=== PATIENT | female | born 1955 | race Caucasian/White ===

== ENCOUNTER 2017-06-24 14:39 | Inpatient (IN) | payer MEDICARE, MEDICAID ==
[~2017-06-24] VITALS: Ht 167.6 cm; Wt 62.2 kg
--- NOTE | 2017-06-24 14:39 | NUR ---
PT WAS [facility]RA FROM [facility] FOR EPISODE OF HYPOXIA IN THE SNF AND VOMITTING X 2 EPISODE. PT WAS GIVEN ZOFRAN AND IV FLUIDS IN THE SNF. BS-106. PT HAS A HISTORY OF LUNG CA. POR HISTORIAN DUE TO PT'S MEDICAL CONDITION. PT WAS PLACED ON CONT CARDIAC AND POX MONITORING, SPO2 88% RA. PLACED ON O2 VIA NC. ALL NEEDS ARE ATTENDED, KEPT COMFORTABLE. PENDING ER MD SANDS
--- NOTE | 2017-06-24 15:20 | NUR ---
NEW IV STARTED ON LAC, 20G. BLOOD DRAWN AND SENT TO LAB.
[2017-06-24 15:30] LABS: BASOPHILS # (AUTO) 0.8 /CMM (0.0-0.2); BASOPHILS % (AUTO) 4.6 % (0.0-2.0); EOSINOPHILS % (AUTO) 0.1 % (0.0-6.0); HEMATOCRIT 39 % (33-45); HEMOGLOBIN 12.4 g/dL (11.5-14.8); LYMPHOCYTES # (AUTO) 1.2 /CMM (0.8-4.8); MEAN CORPUSCULAR HGB CONC 32 g/dl (31.0-36.0); MEAN CORPUSCULAR VOLUME 74 fL (82-100); MONOCYTES # (AUTO) 0.5 /CMM (0.1-1.30); NEUTROPHILS % (AUTO) 85.3 % (43.0-81.0); PLATELET COUNT (AUTO) 446 /CMM (150-450); RDW COEFFICIENT OF VARIATION 15.9 (11.5-15.0); WHITE BLOOD COUNT (AUTO) 16.5 K/uL (4.3-11.0)
[2017-06-24] MEDS ORDERED: IV NS 0.9% 1,000 ML BAG IV ONE (15:30)
[2017-06-24] MEDS ORDERED: PIPERACILLIN /TAZOBACTAM 3.375 G in IV D5W 50 ML IV ONE (15:30)
[2017-06-24] MEDS ORDERED: IOHEXOL-350 100 ML VIAL IV ONE (15:37)
[2017-06-24] MEDS ORDERED: IV NS 0.9% 500 ML IV ONE (15:38)
--- NOTE | 2017-06-24 15:38 | NUR ---
PATIENT TAKEN TO CT VIA STRETCHER.
[2017-06-24 15:40] LABS: CALCIUM, SERUM 11.1 mg/dL (8.5-10.1); CARBON DIOXIDE 25 mmol/L (21-32); CHLORIDE 105 mmol/L (98-107); CREATININE 1.3 mg/dL (0.6-1.3); GLUCOSE 83 mg/dL (74-106); POTASSIUM 4.6 mmol/L (3.5-5.1); SODIUM SERUM 143 mmol/L (136-145); UREA NITROGEN, BLOOD 43 mg/dL (7-18)
[2017-06-24] MEDS ORDERED: CT SWABBABLE VALVE TRANS SET 1 EA INFUS.SET MC ONE (15:40)
[2017-06-24 15:43] LABS: INR 1.21 (0.85-1.15)
[2017-06-24 15:45] LABS: ALANINE AMINOTRANSFERASE 9 U/L (12-78); ALBUMIN 1.9 g/dL (3.4-5.0); ALKALINE PHOSPHATASE 82 U/L (46-116); ASPARTATE AMINOTRANSFERASE 18 U/L (15-37); BILIRUBIN,DIRECT 0.1 mg/dL (0.0-0.2); BILIRUBIN,TOTAL 0.4 mg/dL (0.2-1.0); TOTAL PROTEIN, SERUM 6.9 g/dL (6.4-8.2)
[2017-06-24 15:48] LABS: TROPONIN I < 0.017 ng/mL (0.00-0.056)
--- NOTE | 2017-06-24 16:03 | NUR ---
PATIENT RETURNED FROM CT IN STABLE CONDITION.
--- NOTE | 2017-06-24 16:07 | NUR ---
US TECH AT BEDSIDE.
[2017-06-24] MEDS ORDERED: HYDROMORPHONE INJ 2 MG/ML DISP.SYRIN ONE (16:27)
[2017-06-24] MEDS ORDERED: HYDROMORPHONE 1 MG/1 ML DISP.SYRIN IV ONE (16:30)
--- NOTE | 2017-06-24 16:54 | NUR ---
CALLED NURSING WIC SITE COORDINATOR AND REQUESTED A HERB BED FOR THIS PT.
--- NOTE | 2017-06-24 17:00 | NUR ---
16 FR vegas catheter inserted per sterile protocal. Immediate output 35 ML of urine, color yellow, cloudy.
--- NOTE | 2017-06-24 17:03 | NUR ---
CALLED [facility] FOR A PANEL CALL AND LAUREN MIKE WAS PAGED
[2017-06-24 17:06] LABS: APPEARANCE,URINE Cloudy (CLEAR); BILIRUBIN,URINE SMALL (NEGATIVE); BLOOD, URINE Large Ery/uL (NEGATIVE); COLOR,URINE Yellow (YELLOW); KETONES,URINE 15 (NEGATIVE); LEUKOCYTE ESTERASE ,URINE Moderate (NEGATIVE); NITRITE, URINE Negative (NEGATIVE); PH,URINE 5.5 (5.0-8.0); PROTEIN,URINE 30 mg/dl (NEGATIVE); UGLUCOSE Negative (NEGATIVE); UROBILINOGEN,URINE 0.2 EU/dL (0.2)
--- NOTE | 2017-06-24 17:08 | NUR ---
PT IS ASSIGNED TO [facility] RM#: [id number], PT IS DIAGNOSED WITH METASTATIC LUNG CANCER, AND LAUREN MIKE IS THE ACCEPTING DNP.
--- NOTE | 2017-06-24 17:20 | NUR ---
PATIENT TAKEN TO CT VIA STRETCHER.
--- NOTE | 2017-06-24 17:23 | NUR ---
REPORT GIVEN TO ROD MINAYA FOR JOHN UPON ADMISSION.
--- NOTE | 2017-06-24 17:32 | NUR ---
PATIENT RETURNED FROM CT IN STABLE CONDITION.
[2017-06-24 18:00] LABS: BACTERIA,URINE 2+ /HPF (None Seen); RBC,URINE 81-100 /HPF (0-2); SQUAMOUS EPITHELIAL CELL,UR Few /HPF (None Seen); WBC,URINE 21-50 /HPF (0-3)
[2017-06-24] MEDS ORDERED: TRAZ-182 PO (18:12)
[2017-06-24] MEDS ORDERED: ACET-868 PO (18:12)
[2017-06-24] MEDS ORDERED: POLY17PO4 PO (18:12)
[2017-06-24] MEDS ORDERED: IPRA3AMP23 IH ×2 (18:12)
[2017-06-24] MEDS ORDERED: OXYC10TA49 PO (18:12)
[2017-06-24] MEDS ORDERED: ZOLP5TAB8 PO (18:12)
[2017-06-24] MEDS ORDERED: PANT40TA4 PO (18:12)
[2017-06-24] MEDS ORDERED: ESCI10TA PO (18:12)
[2017-06-24] MEDS ORDERED: LUBI24CA5 PO (18:12)
[2017-06-24] MEDS ORDERED: METH10TA2 PO (18:12)
[2017-06-24] MEDS ORDERED: BISA10SU8 RC (18:12)
[2017-06-24] MEDS ORDERED: MAG-5 PO (18:12)
[2017-06-24] MEDS ORDERED: FAMO20TA8 PO (18:12)
[2017-06-24] MEDS ORDERED: LORA1TAB PO (18:12)
[2017-06-24] MEDS ORDERED: CEFT1VIA15 IV (18:12)
[2017-06-24] MEDS ORDERED: ONDA4TAB5 PO (18:12)
[2017-06-24] MEDS ORDERED: MAGN400O6 PO (18:12)
--- NOTE | 2017-06-24 18:43 | NUR ---
PT TRANSFERRED TO FLOOR ASSISTED BY FELIX MINAYA AND KETTY GUSMAN, VIA ACLS PROTOCOL
[2017-06-24 18:50] VITALS: BP 136/75
--- NOTE | 2017-06-24 18:50 | NUR ---
RN NOTES RECEIVED PT IN ROOM 107 FROM ER, PT IS A/Ox1, ON 3 L O2 N/C , O2 SAT 99%, ON TELE SR HR IN 70'S , FENG DRAINING TO GRAVITY , L WRIST IV SITE G 24 CDI, BP =136/75 T=97.9, R =27 WILL ENDOSE TO [facility] SHIFT NURSE FOR JOHN
[2017-06-24] MEDS ORDERED: ZOLPIDEM TARTRATE 5 MG TABLET PO PRN (19:30)
[2017-06-24] MEDS ORDERED: MAG HYDROX/AL HYDROX/SIMETH 30 ML UDC PO PRN (19:30)
[2017-06-24] MEDS ORDERED: HYDROCODONE/APAP 5/325MG 1 EACH TABLET PO PRN (19:30)
[2017-06-24] MEDS ORDERED: ACETAMINOPHEN 650 MG/SUPP.RECT RC PRN (19:30)
[2017-06-24] MEDS ORDERED: ONDANSETRON HCL/PF 4 MG/2 ML VIAL IVP PRN (19:30)
[2017-06-24] MEDS ORDERED: MAGNESIUM HYDROXIDE 30 ML UDC PO PRN (19:30)
[2017-06-24] MEDS ORDERED: FENTANYL PF 100MCG/2ML AMPUL IV PRN (19:30)
[2017-06-24] MEDS ORDERED: ACETAMINOPHEN 325 MG TABLET PO PRN (19:30)
[2017-06-24] MEDS ORDERED: Z GUARD REMEDY 2 OZ OINT TP PRN (19:30)
[2017-06-24] MEDS ORDERED: FEE PK DOSING 1 MIN EA MC ONE (19:40)
[2017-06-24 20:00] VITALS: BP 144/83
[2017-06-24] MEDS ORDERED: VANCOMYCIN 1 GM in IV D5W 250 ML IV SCH (20:00)
[2017-06-24] MEDS: PANTOPRAZOLE 40 MG VIAL IV SCH (20:25)
[2017-06-24] MEDS: LEVOFLOXACIN 750 MG /D5W 150ML 750 MG in PREMIX 1 EA IV SCH (20:27)
[2017-06-24] MEDS: RIVAROXABAN 10 MG TABLET PO SCH (20:27)
[2017-06-24] MEDS: IV D5/ 0.9% NACL 1,000 ML IV PRN (20:28)
[2017-06-25] VITALS: BP 152/84
[2017-06-25 04:00] VITALS: BP 131/80
[2017-06-25] MEDS: PIPERACILLIN /TAZOBACTAM 3.375 G in IV D5W 50 ML IV SCH ×5 (05:53→17:20)
[2017-06-25 06:26] LABS: BASOPHILS % (AUTO) 0.2 % (0.0-2.0); EOSINOPHILS % (AUTO) 0.1 % (0.0-6.0); HEMATOCRIT 33 % (33-45); HEMOGLOBIN 10.3 g/dL (11.5-14.8); LYMPHOCYTES # (AUTO) 4.6 /CMM (0.8-4.8); LYMPHOCYTES % (AUTO) 21.8 % (20.0-44.0); MEAN CORPUSCULAR HGB CONC 31 g/dl (31.0-36.0); MEAN CORPUSCULAR VOLUME 75 fL (82-100); MONOCYTES # (AUTO) 0.7 /CMM (0.1-1.30); MONOCYTES % (AUTO) 3.4 % (2.0-12.0); NEUTROPHILS # (AUTO) 15.8 /CMM (1.8-8.9); NEUTROPHILS % (AUTO) 74.5 % (43.0-81.0); PLATELET COUNT (AUTO) 419 /CMM (150-450); RDW COEFFICIENT OF VARIATION 17.6 (11.5-15.0); RED BLOOD CELL COUNT(AUTO) 4.44 MIL/uL (4.0-5.2); WHITE BLOOD COUNT (AUTO) 21.3 K/uL (4.3-11.0)
--- NOTE | 2017-06-25 06:40 | NUR ---
HERB RN NOTES, PATIENT SLEEPING IN BED, BREATHING EVEN AND UNLABORED, NO SOB/ACUTE DISTRESS, NO SIGNIFICANT JOHN THROUGHOUT THE NIGHT, IV INTACT AND PATENT, IVF INFUSING WELL AND PATIENT TOLERATED WELL, F/C DRAINING YELLOW URINE BY GRAVITY, PATENCY INTACT, WILL ENDORSE CONTINUITY OF CARE TO ONCOMING SHIFT.
[2017-06-25 06:46] LABS: ALBUMIN 1.5 g/dL (3.4-5.0); BILIRUBIN,TOTAL 0.8 mg/dL (0.2-1.0); CREATININE 1.1 mg/dL (0.6-1.3); MAGNESIUM 1.8 mg/dL (1.8-2.4); PHOSPHORUS 3.9 mg/dL (2.5-4.9); TOTAL PROTEIN, SERUM 5.9 g/dL (6.4-8.2)
[2017-06-25 06:51] LABS: THYROID STIMULATING HORMONE 3.481 uIU/mL (0.358-3.74)
--- NOTE | 2017-06-25 07:15 | NUR ---
TD RN OPENING RECEIVED PATIENT A/OX2-3 SLIGHT CONFUSION NOTED. PATIENT TELE NSR. FC IN PLACE AND DRAINING TO GRAVITY. IVF ORDERED AND IV SITE CLEAN DRY AND INTACT. PATIENT IS ANXIOUS AND ALL NEEDS ASSESSED AND MET. SAFETY PRECAUTIONS IN PLACE. PATIENT REFUSING SKIN CHECK AT THIS TIME. BLE POPLITEAL PULSES PRESENT. BLE WARM TO TOUCH OFFLOADED ON PILLOW. WILL ROUND PRN.
[2017-06-25 08:00] VITALS: BP 130/81
--- NOTE | 2017-06-25 08:00 | NUR ---
HERB RN NOTES PATIENT REFUSING TURNING/OFFLOADING, SKIN CARE, SKIN CHECK, OR BED BATH. EDUCATED AND STATED UNDERSTANDING.
[2017-06-25] MEDS: VANCOMYCIN 0.75 GM in IV D5W 250 ML IV SCH ×2 (08:38→20:14)
[2017-06-25 09:41] LABS: BAND % (MANUAL) 4 % (0.0-5.0); LYMPHOCYTES % (MANUAL) 17 % (16-48); MONOCYTES % (MANUAL) 10 % (0-11.0); NEUTROPHILS % (MANUAL) 69 (42-76)
--- NOTE | 2017-06-25 10:00 | NUR ---
HERB RN NOTES PATIENT REFUSING TURNING/OFFLOADING, SKIN CARE, SKIN CHECK, OR BED BATH. EDUCATED AND STATED UNDERSTANDING.
[2017-06-25] MEDS: IV D5/ 0.9% NACL 1,000 ML IV PRN (11:13)
--- NOTE | 2017-06-25 13:00 | NUR ---
MS RN NOTES TICKET MARKER ARPAN YBARRA AT BEDSIDE. PATIENT REFUSING BED BATH. ALLOWED MYSELF AND ARMY MANAGER TO CHANGE LINENS AND APPLY MEPILEX TO BILAT HIPS DUE TO VERY SENSITIVE SKIN AND MULTIPLE CLOSED BLISTERS ON HIPS. PATIENT IS NOW ALLOWING US TO OFFLOAD WITH PILLOWS HER SACRUM, APPLY MEPILEX TO SACRUM AND OFFLOAD HEELS THEY ARE BECOMING RED. PATIENT EDUCATED ON SKIN CARE AND HYGIENE. STATES UNDERSTANDING BUT STILL REFUSING BED BATH.
--- NOTE | 2017-06-25 13:42 | NUR ---
MS RN NOTES DR PAYNE AT BEDSIDE.
--- NOTE | 2017-06-25 15:00 | NUR ---
MS RN NOTES DR GARCIA AT BEDSIDE.
--- NOTE | 2017-06-25 15:30 | NUR ---
MS RN NOTES SPEECH THERAPIST AT BEDSIDE FOR SWALLOW EVAL
--- NOTE | 2017-06-25 15:48 | NUR ---
MS RN NOTES NOTIFIED DR MIKE PATIENT REFUSING SWALLOW EVAL, HALLUCINATING AND PARANOID. PATIENT NOT ALLOWING ANY HYGIENE, SKIN CARE, WOUND CARE, TURNING OFFLOADING. PER MD OKAY TO ORDER PSYCH CONSULT; TODAY DR RIVERA AUTOMATIC BOW MAKER MACHINE TENDER. FAXED FACE SHEET TO [facility] PATIENT SAFETY PRECAUTIONS IN PLACE. CALL LIGHT IN REACH. MD AWARE OF MED RECON.
[2017-06-25 16:00] VITALS: BP 146/84
[2017-06-25] MEDS ORDERED: MAG HYDROX/AL HYDROX/SIMETH 30 ML UDC PO PRN (16:00)
[2017-06-25] MEDS ORDERED: LORAZEPAM 1 MG TABLET PO PRN (16:00)
[2017-06-25] MEDS ORDERED: BISACODYL SUPP (10 MG) 10 MG/SUPP.RECT SUPP.RECT RC PRN (16:00)
[2017-06-25] MEDS ORDERED: MAGNESIUM HYDROXIDE 30 ML UDC PO PRN (16:00)
--- NOTE | 2017-06-25 16:04 | NUR ---
MS RN NOTES PATIENT REFUSING TURNING/OFFLOADING. PASSIVE WITH RESPONDING. PATIENT FORGETFUL TO WHERE SHE IS AT TIMES AND HALLUCINATING STATING SHE LEFT TO GO SOMEWHERE AND ALREADY CAME BACK WITH FOOD.
--- NOTE | 2017-06-25 16:28 | NUR ---
MS RN NOTES CALLED [facility] AND THEY DO NOT HAVE INFORMATION ON PATIENT [facility] BUT STATES IT IS FOR CHRONIC PAIN POSSIBLY FROM MET LUNG CA. NOTIFIED PHARMACY.
[2017-06-25] MEDS ORDERED: ALBUTEROL FS 2.5 MG/0.5 ML VIAL.NEB NEB PRN (16:30)
[2017-06-25] MEDS: oxyCODONE IR immediate release 5 MG PO SCH ×2 (16:30→21:51)
[2017-06-25] MEDS ORDERED: IPRATROPIUM NEB FS 0.5 MG/2.5 ML AMPUL.NEB NEB PRN (16:30)
[2017-06-25] MEDS: POLYETHYLENE GLYCOL 3350 17 GM POWD.PACK PO SCH (17:00)
[2017-06-25] MEDS: RIVAROXABAN 10 MG TABLET PO SCH (17:00)
--- NOTE | 2017-06-25 17:21 | NUR ---
MS RN NOTES MULTIPLE ATTEMPTS TO HAVE PATIENT TAKE PO MEDICATIONS. STATES I AM LYING THAT SHE IS AT [facility] AND IGNORING WHEN SPOKE TO. PATIENT IS REFUSING. EDUCATED BUT PASSIVE
--- NOTE | 2017-06-25 17:30 | NUR ---
MS RN NOTES NOTIFIED DR MIKE PATIENT REFUSED XARELTO. NO NEW ORDERS.
[2017-06-25] MEDS ORDERED: METHADONE HCL 10 MG TABLET PO SCH (18:00)
--- NOTE | 2017-06-25 18:34 | NUR ---
MS RN CLOSING PATIENT CONTINUES TO REFUSE TURNING, PO MEDICATIONS AND TO RESPOND TO STAFF MOST TIMES. PATIENT REFUSES TO ACCEPT SHE IS IN THE HOSPITAL AND DOES NOT TRUST ANYONE TO GIVE HER ANYTHING. APPEARS STABLE. ROOM AIR STABLE. NO SOB, DIFFICULTY BREATHING. SAFETY PRECAUTIONS IN PLACE. WILL ENDORSE CARE TO RN FOR JOHN
--- NOTE | 2017-06-25 18:47 | NUR ---
MS RN NOTES CALLED [facility]. PATIENT PRIMARY LEGAL INSTRUCTOR IS DR ALEXANDER; MESSAGE TO OFFICE TO NOTIFY OF ADMISSION. AND PATIENT PRIMARY MD IS DR CRONIN [phone]
--- NOTE | 2017-06-25 19:20 | NUR ---
MS RN NOTES, PATIENT SLEEPING IN BED, BREATHING EVEN AND UNLABORED, NO SOB/ACUTE DISTRESS, DENIES DISCOMFORT OR PAIN AT TIS TIME, IV INTACT AND PATENT, IVF INFUSING WELL AND PATIENT TOLERATED WELL, F/C DRAINING YELLOW URINE BY GRAVITY, PATENCY INTACT, BED LOCKED AND IN LOWEST POSITION, CALL LIGHT W/I REACH, WILL CONTINUE TO MONITOR CLOSELY.
[2017-06-25 20:00] VITALS: BP 139/88
[2017-06-25] MEDS: PANTOPRAZOLE 40 MG VIAL IV SCH (20:12)
[2017-06-25] MEDS: TRAZODONE 50 MG TABLET PO SCH (21:51)
[2017-06-26] MEDS: PIPERACILLIN /TAZOBACTAM 3.375 G in IV D5W 50 ML IV SCH ×5 (01:13→23:26)
[2017-06-26 04:00] VITALS: BP 152/72
[2017-06-26] MEDS: oxyCODONE IR immediate release 5 MG PO SCH ×3 (04:30→11:10)
--- NOTE | 2017-06-26 06:54 | NUR ---
MS RN NOTES, PATIENT AWAKE IN BED, BREATHING EVEN AND UNLABORED, NO SOB/ACUTE DISTRESS, DENIES DISCOMFORT OR PAIN AT TIS TIME, IV INTACT AND PATENT, IVF INFUSING WELL AND PATIENT TOLERATED WELL, F/C DRAINING YELLOW URINE BY GRAVITY, PATENCY INTACT, NO SIGNIFICANT CHANGE OF CONDITION DURING SHIFT, BED LOCKED AND IN LOWEST POSITION, CALL LIGHT W/I REACH, WILL ENDORSE CONTINUITY OF CARE TO ONCOMING SHIFT.
[2017-06-26 07:51] LABS: CALCIUM, SERUM 10.1 mg/dL (8.5-10.1); POTASSIUM 3.1 mmol/L (3.5-5.1)
--- NOTE | 2017-06-26 07:51 | NUR ---
MS RN NOTES RECEIVED REPORT. PATIENT AWAKE A.OX2 CONFUSED. PATIENT IV SITE LEAKING. REMOVED WITH PRESSURE AND DRESSING APPLIED NO BLEEDING NOTED. CATH TIP INTACT AND PATIENT STATING SHE WILL ALLOW A NEW INSERTION. FC IN PLACE DRAINING WELL CLEAR YELLOW URINE. PATIENT NEEDS IN REACH, SAFETY PRECAUTIONS IN PLACE. MONITORING.
[2017-06-26 08:00] VITALS: BP_SYST 113; BP_SYST 169; BP_DIAS 64; BP_DIAS 69
[2017-06-26] MEDS: VANCOMYCIN 0.75 GM in IV D5W 250 ML IV SCH ×2 (08:00→15:16)
[2017-06-26] MEDS: POLYETHYLENE GLYCOL 3350 17 GM POWD.PACK PO SCH ×2 (08:30→18:04)
[2017-06-26] MEDS: ESCITALOPRAM OXALATE (10 MG) 10 MG TABLET PO SCH (08:30)
--- NOTE | 2017-06-26 08:39 | NUR ---
MS RN NOTES PATIENT IS REFUSING IV ACCESS. PO MEDICATIONS AND ANY ORAL SWALLOWING OF WATER/ICE CHIPS. VANCO HELD TROUGH ELEVATED 21. SAFETY PRECAUTIONS IN PLACE. WILL MONITOR
[2017-06-26] MEDS ORDERED: Medication Not On Formulary EA (Lubiprostone (Amitiza) 24 MCG) PO SCH (09:00)
--- NOTE | 2017-06-26 09:43 | NUR ---
MS RN NOTES MESSAGE TO DR NANCY MORALES NO UPDATE PATIENT REFUSING IV ACCESS, PO MEDICATIONS AND SKIN CARE.
--- NOTE | 2017-06-26 09:53 | NUR ---
MS MINAYA NOTES PATIENT REFUSING CHANGING OF MEPILEX AT THIS TIME. EDUCATED. PASSIVE AND NON RESPONSIVE TO QUESTIONS. SAFETY PRECAUTIONS IN PLACE Addendum: 06/26/17 at 1007 by SUMANTH LLAMAS RN Amended: Links added.
--- NOTE | 2017-06-26 10:08 | NUR ---
MS MINAYA NOTES PATIENT REFUSING SKIN CARE/WOUND CARE. PATIENT NOT ALLOWING VISUALIZATION ON AREA. MEPILEX ON AREA PER MD ORDER.EDUCATED BUT REFUSING EDUCATION AND NOT REQPONDING TO QUESTIONS ASKED Addendum: 06/26/17 at 1008 by SUMANTH LLAMAS RN Amended: Links added.
--- NOTE | 2017-06-26 10:08 | NUR ---
MS RN NOTES CARE ENDORSED TO MARIMAR ORTEGA FOR JOHN.
--- NOTE | 2017-06-26 10:25 | NUR ---
WOUND CARE CONSULT WOUND CARE RECEIVED CONSULT FOR DECUBITUS ULCERS. WOUND CARE WILL DEFER CONSULT AND ALL TREATMENT PLANS TO SURGICAL TEAM WHO ARE CURRENTLY FOLLOWING. PATIENT WITH ALIYA AT 14, ALL PRESSURE ULCER PREVENTION MEASURES NOTED TO BE IN PLACE AT THIS TIME.
--- NOTE | 2017-06-26 10:30 | NUR ---
RN NOTE RECEIVED PT FROM SUMANTH MINAYA FOR JOHN, PT STABLE, PT REFUSES IV ACCESS. NANCY MOARLES NOTIFIED
[2017-06-26] MEDS ORDERED: POTASSIUM CHLORIDE 20 MEQ TAB.PRT.SR PO SCH (11:00)
[2017-06-26] MEDS ORDERED: POTASSIUM CHLORIDE 20 MEQ POWDER PACKET PO ONE (12:00)
--- NOTE | 2017-06-26 14:22 | NUR ---
RN NOTE ZOSYN WAS GIVEN LATE BECAUSE PT HAD NO IV ACCESS BEFORE AND WAS REFUSING PLACEMENT OF NEW IV CATHETER. LATER ON SHE DID CONSENT FOR IV CATHETER. WILL MONITOR PT. CALL LIGHT WITHIN REACH.
[2017-06-26] MEDS ORDERED: FENTANYL TD PATCH (12 MCG/HR) 12 MCG/HR PATCH.TD72 TD SCH ×2 (14:30→15:24)
[2017-06-26] MEDS: ALBUTEROL FS 2.5 MG/0.5 ML VIAL.NEB NEB SCH ×3 (15:30→19:34)
[2017-06-26 16:00] VITALS: BP 149/85
[2017-06-26] MEDS: IPRATROPIUM NEB FS 0.5 MG/2.5 ML AMPUL.NEB NEB SCH ×2 (16:30→19:35)
[2017-06-26] MEDS: RIVAROXABAN 10 MG TABLET PO SCH (18:04)
[2017-06-26] MEDS: Potassium Chloride 20 MEQ in IV D5/0.45 NACL 1,000 ML IV PRN (18:05)
[2017-06-26] MEDS: METHADONE HCL 10 MG TABLET PO SCH (18:05)
--- NOTE | 2017-06-26 19:30 | NUR ---
RN OPENING NOTES REPORT RECEIVED FROM SHANNON MINAYA. PATIENT A/A/O X2, ABLE TO MAKE SOME NEEDS KNOWN. BREATHING EVEN & UNLABORED, TOLERATING O2 @ 2LPM VIA NC. DENIES SOB OR DIFFICULTY BREATHING. PULSES PRESENT & DRESSINGS REINFORCED ON WOUNDS. RIGHT WRIST IV #24 & RIGHT UPPER ARM MIDLINE INTACT & PATENT W/ DRESSING CDI. IVF D5 1/2 NS W/ KCL 20 MEQ INFUSING WELL @ 100 ML/HR IN RIGHT UA MIDLINE. FENG CATH DRAINING YELLOW URINE. DENIES ANY PAIN OR DISCOMFORT @ THIS TIME. SAFETY MEASURES IN PLACE W/ CALL LIGHT WITHIN REACH. INSTRUCTED TO CALL FOR ASSISTANCE. WILL CONTINUE TO MONITOR.
[2017-06-26 20:00] VITALS: BP 142/68
[2017-06-26] MEDS: LEVOFLOXACIN 750 MG /D5W 150ML 750 MG in PREMIX 1 EA IV SCH (20:47)
[2017-06-26] MEDS: PANTOPRAZOLE 40 MG VIAL IV SCH (20:47)
[2017-06-26] MEDS: TRAZODONE 50 MG TABLET PO SCH (21:34)
[2017-06-27] MEDS: oxyCODONE IR immediate release 5 MG PO PRN ×3 (02:33→23:07)
[2017-06-27 04:00] VITALS: BP 120/79
[2017-06-27 04:30] VITALS: BP 120/79
[2017-06-27] MEDS: PIPERACILLIN /TAZOBACTAM 3.375 G in IV D5W 50 ML IV SCH ×3 (05:05→18:30)
[2017-06-27 06:42] LABS: BASOPHILS % (AUTO) 0.3 % (0.0-2.0); EOSINOPHILS % (AUTO) 0.6 % (0.0-6.0); HEMATOCRIT 29 % (33-45); HEMOGLOBIN 9.1 g/dL (11.5-14.8); LYMPHOCYTES # (AUTO) 2.1 /CMM (0.8-4.8); LYMPHOCYTES % (AUTO) 20.8 % (20.0-44.0); MEAN CORPUSCULAR HGB CONC 32 g/dl (31.0-36.0); MEAN CORPUSCULAR VOLUME 75 fL (82-100); MONOCYTES # (AUTO) 0.6 /CMM (0.1-1.30); MONOCYTES % (AUTO) 6.4 % (2.0-12.0); NEUTROPHILS # (AUTO) 7.1 /CMM (1.8-8.9); NEUTROPHILS % (AUTO) 71.9 % (43.0-81.0); PLATELET COUNT (AUTO) 312 /CMM (150-450); RDW COEFFICIENT OF VARIATION 17.5 (11.5-15.0); RED BLOOD CELL COUNT(AUTO) 3.84 MIL/uL (4.0-5.2); WHITE BLOOD COUNT (AUTO) 9.9 K/uL (4.3-11.0)
[2017-06-27 06:49] LABS: CALCIUM, SERUM 9.5 mg/dL (8.5-10.1); CREATININE 0.7 mg/dL (0.6-1.3); MAGNESIUM 1.4 mg/dL (1.8-2.4); PHOSPHORUS 2.4 mg/dL (2.5-4.9); POTASSIUM 3.1 mmol/L (3.5-5.1)
[2017-06-27] MEDS: ALBUTEROL FS 2.5 MG/0.5 ML VIAL.NEB NEB SCH ×3 (07:33→23:55)
[2017-06-27] MEDS: IPRATROPIUM NEB FS 0.5 MG/2.5 ML AMPUL.NEB NEB SCH ×3 (07:33→23:55)
[2017-06-27 08:00] VITALS: BP 121/79
[2017-06-27] MEDS: VANCOMYCIN 0.75 GM in IV D5W 250 ML IV SCH (08:00)
--- NOTE | 2017-06-27 09:00 | NUR ---
RN NOTES RECEIVED REPORT FROM JHON FOR CONTINUITY OF CARE. PT A&0X2 LETHARGIC , 2L NC SATING WELL NO SOB OR DISTRESS NOTED. FENG DRAINING TO GRAVITY. KB MIDLINE INTACT WITH IVF AT 100ML/HR. BED LOCKED AND IN LOWEST POSITION, CALL LIGHT WITHIN REACH, SIDE RAILS UPX3, WILL CONT TO LYNDA.
[2017-06-27] MEDS: ESCITALOPRAM OXALATE (10 MG) 10 MG TABLET PO SCH (09:08)
[2017-06-27] MEDS: POLYETHYLENE GLYCOL 3350 17 GM POWD.PACK PO SCH ×2 (09:08→16:06)
[2017-06-27] MEDS: METHADONE HCL 10 MG TABLET PO SCH ×2 (09:08→16:08)
[2017-06-27] MEDS: Magnesium 1GM/D5W 100ML PREMIX 100 ML IV SCH ×4 (10:40→17:20)
[2017-06-27] MEDS: Potassium Chloride 20 MEQ in IV D5/0.45 NACL 1,000 ML IV PRN ×2 (10:42→20:49)
[2017-06-27 16:00] VITALS: BP 118/67
[2017-06-27] MEDS: RIVAROXABAN 10 MG TABLET PO SCH (16:07)
[2017-06-27] MEDS ORDERED: K PHOS NEUTRAL 250 MG TABLET PO ONE (17:00)
--- NOTE | 2017-06-27 18:40 | NUR ---
RN NOTES PT REMAINED IN STABLE CONDITION THROUGHOUT THE SHIFT, ALL NEEDS MET, NO SIGNIFICANT CHANGES NOTED. WILL ENDORSE TO ONCOMING SHIFT.
[2017-06-27 20:00] VITALS: BP 111/60
[2017-06-27] MEDS: PANTOPRAZOLE 40 MG VIAL IV SCH (20:23)
--- NOTE | 2017-06-27 20:49 | NUR ---
RN NOTES RECEIVED PATIENT AWAKE IN BED WITH NO DISTRESS NOTED. BREATHING EVEN AND UNLABORED. 02 AT 2L VIA NASAL CANNULA TOLERATING WELL. ALERT AND ORIENTED. ABLE TO VERBALIZE NEEDS. NO COMPLAINT OF PAIN OF THIS TIME. VITAL SIGNS WNL. WILL CONTINUE TO MONITOR.
[2017-06-27] MEDS: TRAZODONE 50 MG TABLET PO SCH (21:41)
[2017-06-28] MEDS: PIPERACILLIN /TAZOBACTAM 3.375 G in IV D5W 50 ML IV SCH ×3 (01:50→11:13)
[2017-06-28] MEDS: VANCOMYCIN 0.75 GM in IV D5W 250 ML IV SCH (02:21)
[2017-06-28 04:00] VITALS: BP 112/71
[2017-06-28] MEDS: oxyCODONE IR immediate release 5 MG PO PRN (05:31)
[2017-06-28] MEDS: Potassium Chloride 20 MEQ in IV D5/0.45 NACL 1,000 ML IV PRN (05:33)
--- NOTE | 2017-06-28 06:24 | NUR ---
RN CLOSING NOTES PATIENT SLEEPING COMFORTABLY IN BED WITH NO DISTRESS NOTED. COMPLAINT OF PAIN AT ABOUT 11PM AND 5AM, OXXY IR GIVEN WITH RELIEF. FENG CATH IN PLACE, PATENT DRAINING CLEAR YELLOW WITH NO FOUL ODOR URINE. NO SIGNIFICANT CHANGE OF CONDITION. VITAL SIGNS WNL. KEPT CLEAN AND DRY.
[2017-06-28 06:25] LABS: BASOPHILS % (AUTO) 0.2 % (0.0-2.0); HEMATOCRIT 34 % (33-45); HEMOGLOBIN 10.7 g/dL (11.5-14.8); LYMPHOCYTES # (AUTO) 2.8 /CMM (0.8-4.8); MEAN CORPUSCULAR HGB CONC 31 g/dl (31.0-36.0); MEAN CORPUSCULAR VOLUME 75 fL (82-100); MONOCYTES # (AUTO) 0.7 /CMM (0.1-1.30); MONOCYTES % (AUTO) 6.6 % (2.0-12.0); NEUTROPHILS # (AUTO) 6.5 /CMM (1.8-8.9); NEUTROPHILS % (AUTO) 64.2 % (43.0-81.0); PLATELET COUNT (AUTO) 312 /CMM (150-450); RED BLOOD CELL COUNT(AUTO) 4.55 MIL/uL (4.0-5.2); WHITE BLOOD COUNT (AUTO) 10.2 K/uL (4.3-11.0)
--- NOTE | 2017-06-28 06:35 | NUR ---
RN CLOSING NOTES PATIENT SLEEPING COMFORTABLY IN BED WITH NO DISTRESS NOTED. COMPLAINT OF PAIN AT ABOUT 4AM, NORCO 5/325 GIVEN WITH RELIEF. FENG CATH IN PLACE, PATENT DRAINING CLEAR YELLOW WITH NO FOUL ODOR URINE. NO SIGNIFICANT CHANGE OF CONDITION. VITAL SIGNS WNL. KEPT CLEAN AND DRY.
[2017-06-28 06:39] LABS: CALCIUM, SERUM 8.9 mg/dL (8.5-10.1); CREATININE 0.9 mg/dL (0.6-1.3); MAGNESIUM 1.8 mg/dL (1.8-2.4); PHOSPHORUS 1.6 mg/dL (2.5-4.9); POTASSIUM 3.6 mmol/L (3.5-5.1)
[2017-06-28] MEDS: IPRATROPIUM NEB FS 0.5 MG/2.5 ML AMPUL.NEB NEB SCH ×2 (07:28→16:14)
[2017-06-28] MEDS: ALBUTEROL FS 2.5 MG/0.5 ML VIAL.NEB NEB SCH ×2 (07:28→16:14)
--- NOTE | 2017-06-28 07:29 | NUR ---
RN NOTES RECEIVED PT A&0X2 LETHARGIC AT TIMES. ON 2L NC SATING WELL NO SOB OR DISTRESS NOTED. FENG DRAINING TO GRAVITY, YELLOW IN COLOR. KB MIDLINE INTACT WITH IVF AT 100ML/HR. BED LOCKED AND IN LOWEST POSITION, CALL LIGHT WITHIN REACH, SIDE RAILS UPX3, WILL CONT TO LYNDA.
[2017-06-28 08:00] VITALS: BP 128/72
[2017-06-28] MEDS: ESCITALOPRAM OXALATE (10 MG) 10 MG TABLET PO SCH (08:40)
[2017-06-28] MEDS: METHADONE HCL 10 MG TABLET PO SCH ×2 (08:40→16:45)
[2017-06-28] MEDS: POLYETHYLENE GLYCOL 3350 17 GM POWD.PACK PO SCH ×2 (08:40→16:40)
[2017-06-28] MEDS ORDERED: K PHOS NEUTRAL 250 MG TABLET PO ONE (14:00)
[2017-06-28 16:00] VITALS: BP 128/72
[2017-06-28] MEDS: RIVAROXABAN 10 MG TABLET PO SCH (16:45)
[2017-06-28] MEDS ORDERED: RIVA10TA PO (17:40)
[2017-06-28] MEDS ORDERED: PANT40VI IV (17:40)
[2017-06-28] MEDS ORDERED: ALBU2.5V13 NEB ×2 (17:40)
[2017-06-28] MEDS ORDERED: CEFE1FRO IV (17:40)
--- NOTE | 2017-06-28 18:07 | NUR ---
RN NOTES REPORT GIVEN TO FREDDIE AT [facility]. PT DISCHARGED IN STABLE CONDITION.
== END 2017-06-28 18:11 | DRG 177 ==
LOC: ER 14:40 → TELE1 17:17 → TELE-TD 18:48 → MEDSG1 06-25 11:26
PROVIDERS: ADMIT Hospitalist; ATTEND Hospitalist
PROC: 05H533Z Insertion of Infusion Device into Right Subclavian Vein, Percutaneous Approach (ICD-10-PCS; principal; 2017-06-26)
PROC: B546ZZA Ultrasonography of Right Subclavian Vein, Guidance (ICD-10-PCS; 2017-06-26)
DX: J69.0 Pneumonitis due to inhalation of food and vomit (principal); E43 Unspecified severe protein-calorie malnutrition; N17.0 Acute kidney failure with tubular necrosis; G93.41 Metabolic encephalopathy; L89.329 Pressure ulcer of left buttock, unspecified stage; L89.319 Pressure ulcer of right buttock, unspecified stage; I82.403 Acute embolism and thrombosis of unspecified deep veins of lower extremity, bilateral; D68.59 Other primary thrombophilia; E86.0 Dehydration; R53.2 Functional quadriplegia; C34.90 Malignant neoplasm of unspecified part of unspecified bronchus or lung; C79.51 Secondary malignant neoplasm of bone; N39.0 Urinary tract infection, site not specified; F11.20 Opioid dependence, uncomplicated; R13.10 Dysphagia, unspecified; J15.6 Pneumonia due to other Gram-negative bacteria; F41.9 Anxiety disorder, unspecified; J44.9 Chronic obstructive pulmonary disease, unspecified; K21.9 Gastro-esophageal reflux disease without esophagitis; F32.9 Major depressive disorder, single episode, unspecified; G89.4 Chronic pain syndrome; Z79.899 Other long term (current) drug therapy; L89.629 Pressure ulcer of left heel, unspecified stage; L89.619 Pressure ulcer of right heel, unspecified stage; W45.8XXS Other foreign body or object entering through skin, sequela; L98.9 Disorder of the skin and subcutaneous tissue, unspecified; K74.60 Unspecified cirrhosis of liver; G89.3 Neoplasm related pain (acute) (chronic); D89.9 Disorder involving the immune mechanism, unspecified
CPT/HCPCS: 36415; 36569; 70450-TC; 71045-TC; 80048-TC; 80053-TC; 80061-TC; 80076-TC; 80202-TC; 81000-TC; 83605-TC; 83735-TC; 84100-TC; 84134-TC; 84443-TC; 84484-TC; 85025-TC; 85730-TC; 87040-TC; 87081-TC; 87086-TC; 92526; 92611-TC; 93970-TC; 97110-TC; 97530-TC; A4216; A4606; C9113; J1170; J1956; J2405; J2543; J3370; J3475; J3480; J3490; J7030; J7040; J7042; J7050; J7060; J7070; Q9967; Z7610